=== PATIENT | male | born 1990 | race Two or more races ===

== ENCOUNTER 2020-07-25 16:32 | Emergency (ER) | payer OTHER ==
[2020-07-25 17:08] LABS: Appearance SLIGHTLY CLOUDY (CLEAR); Bilirubin SMALL (NEGATIVE); Blood NEGATIVE Ery/ul (0-5); Glucose NEGATIVE (NEGATIVE); Ketones TRACE (NEGATIVE); Leukocyte Esterase NEGATIVE (NEGATIVE); Mucus SLIGHT /HPF (NEGATIVE); Nitrite NEGATIVE (NEGATIVE); Protein,Urine Dip 30 (Negative); Specific Gravity 1.028 (1.005-1.025); Urobilinogen 4 mg/dL (0-1)
[2020-07-25 17:10] LABS: Bacteria NONE SEEN /HPF (NEGATIVE)
--- NOTE | 2020-07-25 17:16 | ERPHSYRPT ---
- History of Present Illness Time Seen by Provider: 07/25/20 16:55 Source: patient Exam Limitations: language barrier Patient Subjective Stated Complaint: pt here for burning with urination for 3 months now, this has been a chroinc problem,no drainage to vickey Triage Nursing Assessment: pt alert,resp easy, skin w/d/p, abd soft Physician History: This is a 30-year-old male who does not speak Portuguese well but enough to c ommunicate and presents with dysuria. He states the pain is a burning sensation that is localized at the distal portion of his penis. He has not noticed any abnormal discharge. He has had these kinds of symptoms intermittently over the last 3 months. Approximately 3 months ago he was evaluated by what appears to be a urologist. He was told by the urologist that he needed to have a scope performed to look inside the bladder. He does not have flank pain. He did have a history of some hematuria in the past without dysuria which prompted the original evaluation by urologist 3 months ago. He has at times noticed some hematuria but today he is here because of the dysuria as described above. He has not had nausea vomiting or diarrhea. He is sexually active. Timing/Duration: intermittent, other Quality: burning Onset Location: other (Distal urethra) Pain Radiation: none Severity of Pain-Max: mild Severity of Pain-Current: mild Modifying Factors: Improves With: nothing Associated Symptoms: abdominal pain (Mild suprapubic pain that is intermittent), dysuria, No fever ( but none currently), No chills, No diaphoresis, No vomiting, No loss of bladder control Prior abdominal problems: none Sexual intercourse history: non-contributory Allergies/Adverse Reactions: ibuprofen [From Advil] Allergy (Verified 07/25/20 16:49) Hx Tetanus, Diphtheria Vaccination/Date Given: No Hx Influenza Vaccination/Date Given: No Hx Pneumococcal Vaccination/Date Given: No Immunizations Up to Date: Yes Travel Risk - International Travel Have you traveled outside of the country in past 3 weeks: No - Coronavirus Screening Are you exhibiting any of the following symptoms?: No Close contact with a COVID-19 positive Pt in past 14-21 Days: No - Vaccine Status Have you recieved a Covid-19 vaccination: Yes Motion Picture Narrator: Unblab - Vaccination Dates Date of 2cond Vaccination (if applicable): may - Past Medical History Pertinent Past Medical History: No Neurological History: No Pertinent History ENT History: No Pertinent History Cardiac History: No Pertinent History Respiratory History: No Pertinent History Endocrine Medical History: No Pertinent History Musculoskeletal History: No Pertinent History GI Medical History: No Pertinent History History: No Pertinent History Psycho-Social History: No Pertinent History Male Reproductive Disorders: No Pertinent History - Past Surgical History Past Surgical History: Yes Neuro Surgical History: No Pertinent History Cardiac: No Pertinent History Respiratory: No Pertinent History Gastrointestinal: Appendectomy Genitourinary: No Pertinent History Musculoskeletal: No Pertinent History Male Surgical History: No Pertinent History - Social History Smoking Status: Current every day smoker Exposure to second hand smoke: Yes Drug Use: none Patient Lives Alone: No - Review of Systems Constitutional: No Symptoms Eyes: No Symptoms Ears, Nose, & Throat: No Symptoms Respiratory: No Symptoms Cardiac: No Symptoms Abdominal/Gastrointestinal: No Symptoms Genitourinary Symptoms: Dysuria Musculoskeletal: No Symptoms Skin: No Symptoms Neurological: No Symptoms Psychological: No Symptoms Endocrine: No Symptoms Hematologic/Lymphatic: No Symptoms Immunological/Allergic: No Symptoms All Other Systems: Reviewed and Negative - Nursing Vital Signs Nursing Vital Signs: Initial Vital Signs Pulse Rate 85 07/25/20 16:44 Respiratory Rate 18 07/25/20 16:44 Blood Pressure 141/68 07/25/20 16:44 O2 Sat by Pulse Oximetry 97 07/25/20 16:44 Pain Scale Pain Intensity 0 - Physical Exam General Appearance: no apparent distress, alert, anxiety Eye Exam: PERRL/EOMI, eyes nml inspection Ears, Nose, Throat Exam: moist mucous membranes Neck Exam: normal inspection, non-tender, supple, full range of motion Respiratory Exam: airway intact, No chest tenderness, No respiratory distress Gastrointestinal/Abdomen Exam: soft, normal bowel sounds, No tenderness, No guarding Rectal Exam: not done Back Exam: normal inspection, normal range of motion, No CVA tenderness, No vertebral tenderness Neurologic Exam: alert, oriented x 3, cooperative, 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, normal mood/affect, nml cerebellar function, nml station & gait, sensation nml Skin Exam: normal color, warm, dry Lymphatic Exam: No adenopathy SpO2 Interpretation: normal SpO2: 97 O2 Delivery: Room Air - Course Nursing assessment & vital signs reviewed: Yes Ordered Tests: Active Orders 24 hr Category Date Time Status UA W/RFX UR CULTURE Stat Lab 07/25/20 17:03 Completed Lab/Rad Data: Laboratory Results 07/25/20 07/25/20 Range/Units 17:03 17:03 Urine Color CARMEN (YELLOW) Urine Appearance SLIGHTLY CLOUDY (CLEAR) Urine pH 6.0 (5-6) Ur Specific [place] 1.028 (1.005-1.025) Urine Protein 30 (Negative) Urine Ketones TRACE (NEGATIVE) Urine Blood NEGATIVE (0-5) Ede/ul Urine Nitrite NEGATIVE (NEGATIVE) Urine Bilirubin SMALL (NEGATIVE) Urine Urobilinogen 4 (0-1) mg/dL Ur Leukocyte Esterase NEGATIVE (NEGATIVE) Urine WBC (Auto) NONE (0-5) /HPF Urine RBC (Auto) NONE (0-2) /HPF U Epithel Cells (Auto) NONE (FEW) /HPF Urine Bacteria (Auto) NONE SEEN (NEGATIVE) /HPF Urine Mucus (Auto) SLIGHT (NEGATIVE) /HPF Urine Culture Reflexed NO (NO) Urine Glucose NEGATIVE (NEGATIVE) mg/dL Chlamydia DNA Probe NOT DETECTED (NEGATIVE) N.gonorrhoeae DNA Probe NOT DETECTED (NEGATIVE) - Progress Progress: pain not gone completely, re-examined Counseled pt/family regarding: lab results, diagnosis, need for follow-up - Departure Departure Disposition: Home Clinical Impression: Dysuria Condition: Stable Critical Care Time: No Additional Instructions: Drink plenty of fluids. Call a urologist on 07/27/2020 to make an appointment for further evaluation and management. Prescriptions: Phenazopyridine HCl 200 mg [Pyridium 200 mg] 200 mg PO TID #6 tablet
[2020-07-25 18:30] LABS: CHLAMYDIA DNA NOT DETECTED (NEGATIVE); GC DNA Probe NOT DETECTED (NEGATIVE)
[2020-07-25] MEDS ORDERED: PYRIDIUM 200 MG ONE (18:42)
[2020-07-25 18:43] VITALS: O2SAT 97
[2020-07-25] MEDS: PYRIDIUM 200 MG PO ONE (18:44)
[2020-07-25 19:02] VITALS: BP 120/68; PULSE 67
== END 2020-07-25 19:02 | disposition home or self-care (01) ==
LOC: ED 16:32
DX: R30.0 Dysuria (principal)
CPT/HCPCS: 81001; 87491; 87591; 99283; A9270-GY